=== PATIENT | male | born 1970 | race Two or more races ===

== ENCOUNTER 2016-11-27 11:46 | Emergency (ER) | payer SELFPAY ==
[~2016-11-27] VITALS: Ht 177.8 cm; Wt 90.3 kg
[2016-11-27 12:10] VITALS: BP 120/68
== END 2016-11-27 13:10 | disposition home or self-care (01) ==
LOC: ER 11:46
DX: J20.9 Acute bronchitis, unspecified (principal); J02.9 Acute pharyngitis, unspecified

== ENCOUNTER 2018-02-01 20:21 | Emergency (ER) | payer MEDICAID ==
[~2018-02-01] VITALS: Ht 170.2 cm; Wt 97.5 kg
[2018-02-01 20:30] VITALS: BP 145/87
== END 2018-02-02 01:00 | disposition left against medical advice (07) ==
LOC: ER 20:21
DX: S09.8XXA Other specified injuries of head, initial encounter (principal); Y08.89XA Assault by other specified means, initial encounter; Z53.21 Procedure and treatment not carried out due to patient leaving prior to being seen by health care provider
CPT/HCPCS: 70450; 70486

== ENCOUNTER 2018-02-23 10:27 | Emergency (ER) | payer SELFPAY ==
[~2018-02-23] VITALS: Ht 165.1 cm; Wt 95.3 kg
[2018-02-23 11:57] VITALS: BP 137/75
== END 2018-02-23 12:07 | disposition home or self-care (01) ==
LOC: ER 10:27
DX: S86.911A Strain of unspecified muscle(s) and tendon(s) at lower leg level, right leg, initial encounter (principal); Z90.89 Acquired absence of other organs; X50.0XXA Overexertion from strenuous movement or load, initial encounter; Y93.89 Activity, other specified; Y99.8 Other external cause status; Y92.89 Other specified places as the place of occurrence of the external cause
CPT/HCPCS: 73560

== ENCOUNTER 2019-06-22 10:02 | Emergency (ER) | payer SELFPAY ==
[~2019-06-22] VITALS: Ht 177.8 cm; Wt 95.3 kg
[2019-06-22 11:36] VITALS: BP 120/70
== END 2019-06-22 12:43 | disposition home or self-care (01) ==
LOC: ER 10:02
DX: R07.89 Other chest pain (principal); Z90.89 Acquired absence of other organs
CPT/HCPCS: 71101; 93005

== ENCOUNTER 2019-11-23 09:46 | Inpatient (IN) | payer SELFPAY ==
[~2019-11-23] VITALS: Ht 167.6 cm; Wt 97.6 kg
[2019-11-23 12:59] LABS: Urine Bacteria NONE SEEN /hpf (None Seen); Urine Blood Negative /uL (Negative); Urine Mucus FEW (None Seen); Urine Specific Gravity 1.025 (1.001-1.035); Urine WBC 4 /hpf (0 - 3)
[2019-11-23 13:24] LABS: Basophils # (auto) 0 uL; Basophils % (auto) 0.8 % (0.0-2.0); Eosinophils # (auto) 0.1 uL; Eosinophils % (auto) 1.1 % (0.0-7.0); Hematocrit 44.8 % (41.0-53.0); Hemoglobin 15.5 g/dL (13.5-17.5); Lymphocytes # (auto) 1.9 uL; Lymphocytes % (auto) 32.7 % (10.0-50.0); Mean Corpuscular Hemoglobin 32.2 pg (28.0-32.0); Mean Corpuscular Hgb Conc. 34.6 g/dL (32.0-36.0); Monocytes # (auto) 0.8 uL; Monocytes % (auto) 13.8 % (0.0-12.0); Neutrophils # (auto) 3.1 uL; Neutrophils % (auto) 51.6 % (37.0-80.0); Nucleated Red Blood Cells % 0.1 %; Platelet Count (auto) 184 10^3/uL (140-450); Red Blood Cells 4.82 10^6/uL (4.5-5.90); Red Cell Distribution Width 13.4 % (11.8-14.3); White Blood Cell 5.9 10^3/uL (4.4-10.8)
[2019-11-23] MEDS ORDERED: SODIUM CHLORIDE 0.9% 1,000 ML IV ONE (13:30)
[2019-11-23 13:45] LABS: Albumin 3.3 g/dL (3.4-5.0); Calcium 8.3 mg/dL (8.5-10.1); Potassium 3.4 mmol/L (3.5-5.1)
[2019-11-23 13:48] LABS: BUN/Creatinine Ratio 16.1; Bilirubin, Total 0.5 mg/dL (0.2-1.0); Total Protein 7.4 g/dL (6.4-8.2)
[2019-11-23] MEDS ORDERED: ACETAMINOPHEN 500 MG TAB PO PRN (14:45)
[2019-11-23] MEDS ORDERED: MORPHINE SULF INJ 2 MG/ML SYRINGE 1ML IV PRN ×2 (14:45)
[2019-11-23] MEDS ORDERED: NITROGLYCERIN 0.4 MG SL TAB SL PRN (14:45)
[2019-11-23] MEDS ORDERED: HYDROcodone-ACET 5/325MG TAB PO PRN (14:45)
[2019-11-23] MEDS ORDERED: POTASSIUM EFFERVESENT TAB 25 MEQ PO ONE (14:45)
[2019-11-23 15:07] VITALS: BP 112/70
[2019-11-23] MEDS: ALBUTEROL SULF 2.5 MG/0.5ML(0.5%) NEB SOLN NEB PRN ×2 (15:35→23:08)
[2019-11-23] MEDS: IPRATROPIUM BROM 0.5 MG/2.5ML INH SOL NEB PRN ×2 (15:35→23:08)
[2019-11-23] MEDS: levoFLOXacin 500MG 100 ML IV SCH (17:39)
[2019-11-23] MEDS: SODIUM CHLORIDE 0.9% 1,000 ML IV SCH (17:39)
[2019-11-23] MEDS: TAMSULOSIN HYDROCHLORIDE 0.4 MG CAP PO SCH (17:40)
[2019-11-23 18:00] VITALS: BP 128/101
[2019-11-23] MEDS ORDERED: INFLUENZA QUAD 2019-2020 0.5ml SYRG IM ONE (18:45)
[2019-11-23 20:00] VITALS: BP 111/79
[2019-11-23] MEDS: metroNIDAZOLE 500MG/100ML 100 ML IV SCH (21:12)
[2019-11-23] MEDS: FAMOTIDINE (10MG/ML) 2ML VL IV SCH (21:12)
[2019-11-23] MEDS: OSELTAMIVIR 75 MG CAP PO SCH (21:13)
[2019-11-23 22:00] VITALS: BP 111/79
[2019-11-24] MEDS: SODIUM CHLORIDE 0.9% 1,000 ML IV SCH ×3 (01:25→17:52)
[2019-11-24 05:02] VITALS: BP_SYST 101; BP_DIAS 46; BP_DIAS 64
[2019-11-24 05:44] LABS: Basophils # (auto) 0 uL; Basophils % (auto) 0.4 % (0.0-2.0); Eosinophils # (auto) 0 uL; Eosinophils % (auto) 0.1 % (0.0-7.0); Hematocrit 40.4 % (41.0-53.0); Lymphocytes # (auto) 1.4 uL; Lymphocytes % (auto) 25.1 % (10.0-50.0); Mean Corpuscular Hemoglobin 32.1 pg (28.0-32.0); Mean Corpuscular Hgb Conc. 34.6 g/dL (32.0-36.0); Mean Corpuscular Volume 92.7 fL (80.0-100.0); Monocytes # (auto) 0.7 uL; Monocytes % (auto) 13.2 % (0.0-12.0); Neutrophils # (auto) 3.4 uL; Neutrophils % (auto) 61.2 % (37.0-80.0); Nucleated Red Blood Cells % 0.1 %; Platelet Count (auto) 174 10^3/uL (140-450); Red Blood Cells 4.36 10^6/uL (4.5-5.90); White Blood Cell 5.5 10^3/uL (4.4-10.8)
[2019-11-24 06:08] LABS: Calcium 7.7 mg/dL (8.5-10.1); Potassium 3.7 mmol/L (3.5-5.1)
[2019-11-24 06:10] LABS: BUN/Creatinine Ratio 11.3
[2019-11-24] MEDS: metroNIDAZOLE 500MG/100ML 100 ML IV SCH ×3 (06:36→22:04)
[2019-11-24 08:43] VITALS: BP 131/76
[2019-11-24] MEDS: FAMOTIDINE (10MG/ML) 2ML VL IV SCH ×2 (09:47→22:04)
[2019-11-24] MEDS: levoFLOXacin 500MG 100 ML IV SCH (09:47)
[2019-11-24] MEDS: OSELTAMIVIR 75 MG CAP PO SCH ×2 (09:48→22:04)
[2019-11-24 12:19] VITALS: BP 118/80
[2019-11-24 16:36] VITALS: BP 129/76
[2019-11-24] MEDS: TAMSULOSIN HYDROCHLORIDE 0.4 MG CAP PO SCH (17:47)
[2019-11-24 22:00] VITALS: BP 122/77
[2019-11-25 05:08] VITALS: BP 114/69
[2019-11-25] MEDS: metroNIDAZOLE 500MG/100ML 100 ML IV SCH ×2 (05:59→14:01)
[2019-11-25] MEDS: SODIUM CHLORIDE 0.9% 1,000 ML IV SCH (06:02)
[2019-11-25 09:00] VITALS: BP 119/64
[2019-11-25] MEDS: FAMOTIDINE (10MG/ML) 2ML VL IV SCH (09:02)
[2019-11-25] MEDS: OSELTAMIVIR 75 MG CAP PO SCH (09:03)
[2019-11-25] MEDS ORDERED: levoFLOXacin 750MG 150 ML IV SCH (10:00)
[2019-11-25] MEDS ORDERED: METR500T PO (12:31)
[2019-11-25] MEDS ORDERED: OSEL75CA11 PO (12:31)
[2019-11-25] MEDS ORDERED: TAM04C PO (12:31)
[2019-11-25] MEDS ORDERED: LEVO750T2 PO (12:31)
[2019-11-25 13:00] VITALS: BP 118/67
[2019-11-25 15:53] VITALS: BP 119/64
== END 2019-11-25 16:50 | disposition home or self-care (01) | DRG 194 ==
LOC: ER 09:46 → OVERFLOW 09:47 → CENTRAL 17:00
PROVIDERS: ADMIT Nurse Practitioner Acute Care; ATTEND Internal Medicine
DX: J10.1 Influenza due to other identified influenza virus with other respiratory manifestations (principal); K57.32 Diverticulitis of large intestine without perforation or abscess without bleeding; N20.0 Calculus of kidney; E87.6 Hypokalemia; E66.01 Morbid (severe) obesity due to excess calories; K76.0 Fatty (change of) liver, not elsewhere classified; N32.81 Overactive bladder; Z68.34 Body mass index [BMI] 34.0-34.9, adult
CPT/HCPCS: 36415; 71046; 74176; 80048; 80053; 81001; 84154; 85025; 87804; 94640; 96361; 96365; 96367; G0378; J1956; J3490

== ENCOUNTER 2023-02-04 13:32 | Emergency (ER) | payer SELFPAY ==
[~2023-02-04] VITALS: Ht 167.6 cm; Wt 88.6 kg
[~2023-02-04 13:32] MED LIST: LEVO750T8 PO; METR500T PO; OSEL75CA5 PO; TAM04C PO
[2023-02-04 14:26] LABS: Basophils # (auto) 0 10 ^3/uL (0-0.2); Basophils % (auto) 0.2 % (0.0-2.0); Eosinophils # (auto) 0 10 ^3/uL (0-0.8); Eosinophils % (auto) 0.4 % (0.0-7.0); Hematocrit 46.3 % (41.0-53.0); Hemoglobin 15.7 g/dL (13.5-17.5); Lymphocytes # (auto) 2.4 10 ^3/uL (0.4-5.4); Lymphocytes % (auto) 35.1 % (10.0-50.0); Mean Corpuscular Hemoglobin 31.4 pg (28.0-32.0); Mean Corpuscular Hgb Conc. 33.9 g/dL (32.0-36.0); Mean Corpuscular Volume 92.6 fL (80.0-100.0); Monocytes # (auto) 0.5 10 ^3/uL (0-1.3); Monocytes % (auto) 7.7 % (0.0-12.0); Neutrophils # (auto) 3.9 10 ^3/uL (1.6-8.6); Neutrophils % (auto) 56.6 % (37.0-80.0); Nucleated Red Blood Cells % 0.5 %; White Blood Cell 6.9 10^3/uL (4.4-10.8)
[2023-02-04 14:49] LABS: Albumin 3.5 g/dL (3.4-5.0); Magnesium 2.4 mg/dL (1.6-2.6); Potassium 3.8 mmol/L (3.5-5.1)
[2023-02-04 14:52] LABS: Bilirubin, Total 0.5 mg/dL (0.2-1.0); Total Protein 7.5 g/dL (6.4-8.2)
[2023-02-04 16:22] LABS: Urine Bacteria NONE SEEN /hpf (None Seen); Urine Blood Negative /uL (Negative); Urine Mucus FEW (None Seen); Urine Specific Gravity 1.033 (1.001-1.035); Urine WBC 4 /hpf (0 - 3)
[2023-02-04] MEDS ORDERED: PANT40TA2 PO (16:27)
[2023-02-04] MEDS ORDERED: ONDA-144 PO (16:27)
[2023-02-04 16:53] VITALS: BP 135/96
== END 2023-02-04 16:57 | disposition home or self-care (01) ==
LOC: ER 13:32
DX: K21.9 Gastro-esophageal reflux disease without esophagitis (principal); E11.9 Type 2 diabetes mellitus without complications; Z79.899 Other long term (current) drug therapy; Z90.89 Acquired absence of other organs
CPT/HCPCS: 36415; 71045; 74176; 80053; 81001; 83690; 83735; 84484; 85025; 93005

== ENCOUNTER 2023-07-01 13:57 | Emergency (ER) | payer SELFPAY ==
[~2023-07-01] VITALS: Ht 165.1 cm; Wt 90.6 kg
[~2023-07-01 13:57] MED LIST changes: +ONDA-144 PO; +PANT40TA2 PO; -TAM04C PO; +TAMS-35 PO
[2023-07-01 14:28] VITALS: BP 117/63; PULSE 63; RESP 20; O2SAT 96
[2023-07-01 15:16] LABS: Urine Bacteria NONE SEEN /hpf (None Seen); Urine Blood Negative /uL (Negative); Urine Clarity Clear (Clear); Urine Color Yellow (Yellow); Urine Protein, UAD Negative (Negative); Urine Specific Gravity 1.029 (1.001-1.035); Urine Urobilinogen Normal (Negative); Urine WBC 1 /hpf (0 - 3); Urine pH 6.5 (5.0-8.0)
[2023-07-01] MEDS ORDERED: NEOM0.1S10 RIGHTEYE (17:04)
== END 2023-07-01 18:04 | disposition home or self-care (01) ==
LOC: ER 13:57
DX: T15.91XA Foreign body on external eye, part unspecified, right eye, initial encounter (principal); H11.31 Conjunctival hemorrhage, right eye; E11.9 Type 2 diabetes mellitus without complications; Z90.89 Acquired absence of other organs; X58.XXXA Exposure to other specified factors, initial encounter; Y93.89 Activity, other specified; Y92.89 Other specified places as the place of occurrence of the external cause; Y99.8 Other external cause status
CPT/HCPCS: 81001